=== PATIENT | female | born 1995 | race African-American/Black ===

== ENCOUNTER 2018-04-27 18:27 | Emergency (ER) | payer OTHER ==
[2018-04-27 18:55] LABS: BASO # 0.1 10^3/uL (0.0-0.2); BASO % 0.4 % (0.0-1.0); EOS % 0.3 % (0.0-3.0); HEMATOCRIT 35.4 % (36.0-47.0); IMMATURE GRANULOCYTE % 0.3 % (0-3.0); LYMPH # 2.1 10^3/uL (1.5-6.5); LYMPH % 17.7 % (24.0-44.0); MEAN CORPUSCULAR HEMOGLOBIN 28.6 pg (27.0-33.0); MEAN CORPUSCULAR HGB CONC 33.9 g/dl (32.0-36.5); MEAN CORPUSCULAR VOLUME 84.5 fl (80.0-96.0); MONO # 0.8 10^3/uL (0.0-0.8); MONO % 6.5 % (0.0-5.0); NEUTROPHILS # 8.8 10^3/uL (1.8-7.7); NEUTROPHILS % 74.8 % (36.0-66.0); PLATELET COUNT, AUTOMATED 345 10^3/uL (150-450); RED BLOOD COUNT 4.19 10^6/uL (4.00-5.40); RED CELL DISTRIBUTION WIDTH 12.9 % (11.5-14.5); WHITE BLOOD COUNT 11.8 10^3/uL (4.0-10.0)
[2018-04-27] MEDS: NS 1,000 ML IV (18:58)
[2018-04-27] MEDS: METOCLOPRAMIDE INJ 10MG/2ML VIAL (J2765) IV (18:58)
[2018-04-27 19:34] LABS: ALBUMIN 3.7 GM/DL (3.2-5.2); ALKALINE PHOSPHATASE 38 U/L (45-117); ALT/SGPT 21 U/L (12-78); AMYLASE 146 U/L (25-115); ANION GAP 11 MEQ/L (8-16); AST/SGOT 19 U/L (7-37); BILIRUBIN,TOTAL 0.6 MG/DL (0.2-1.0); BLOOD UREA NITROGEN 7 MG/DL (7-18); CARBON DIOXIDE LEVEL 24 MEQ/L (21-32); CHLORIDE LEVEL 103 MEQ/L (98-107); CREATININE FOR GFR 0.63 MG/DL (0.55-1.30); GLOMERULAR FILTRATION RATE > 60.0 (>60); GLUCOSE, FASTING 68 MG/DL (70-100); HCG, SERUM QUANTITATIVE 62834 MIU/ML; LIPASE 152 U/L (73-393); SODIUM LEVEL 138 MEQ/L (136-145); TOTAL PROTEIN 7.4 GM/DL (6.4-8.2)
[2018-04-27 20:38] LABS: KETONE, URINE AUTO RFX 1+ mg/dL (NEGATIVE); LEUKOCYTE ESTERASE UR AUTO RFX NEGATIVE (NEGATIVE); MUCUS, URINE RFX SMALL (NEGATIVE); NITRITE, URINE AUTO RFX NEGATIVE (NEGATIVE); RBC, URINE AUTO RFX 5 /HPF (0-3); SPECIFIC GRAVITY UR AUTO RFX 1.025 (1.002-1.035); SQUAM EPITHELIAL CELL UR AURFX 2 /HPF (0-6); WBC, URINE AUTO RFX 1 /HPF (0-3)
[2018-04-27 21:02] LABS: BEDSIDE GLUCOSE 86 MG/DL (70-105)
== END 2018-04-27 21:21 | disposition home or self-care (01) ==
LOC: M ED 18:27
DX: O21.1 Hyperemesis gravidarum with metabolic disturbance (principal); O99.281 Endocrine, nutritional and metabolic diseases complicating pregnancy, first trimester; E86.0 Dehydration; Z3A.01 Less than 8 weeks gestation of pregnancy; Z88.0 Allergy status to penicillin
CPT/HCPCS: J2765

== ENCOUNTER 2018-08-22 11:26 | Emergency (ER) | payer OTHER ==
[~2018-08-22] VITALS: Ht 160 cm; Wt 65.0 kg
[~2018-08-22 11:26] MED LIST: DICL10TA PO; PROM25SU PR
[2018-08-22 11:32] VITALS: BP 118/70
[2018-08-22] MEDS ORDERED: PRENTAB29 (11:36)
[2018-08-22] MEDS ORDERED: POLY33503 (11:36)
== END 2018-08-22 12:05 | disposition home or self-care (01) ==
LOC: M ED 11:26
DX: K64.4 Residual hemorrhoidal skin tags (principal); Z3A.24 24 weeks gestation of pregnancy; Z88.0 Allergy status to penicillin

== ENCOUNTER 2018-08-28 19:54 | Outpatient (CLI) | payer OTHER ==
[~2018-08-28] VITALS: Ht 160 cm; Wt 63.0 kg
[~2018-08-28 19:54] MED LIST changes: +POLY33503; +PRENTAB29
[2018-08-28 20:11] VITALS: BP 118/65
[2018-08-28 20:30] LABS: APPEARANCE, URINE CLOUDY (CLEAR); BACTERIA, URINE AUTO 2+ (NEGATIVE); BILIRUBIN, URINE AUTO NEGATIVE (NEGATIVE); BLOOD, URINE BLOOD NEGATIVE (NEGATIVE); GLUCOSE, URINE (UA) AUTO NEGATIVE (NEGATIVE); KETONE, URINE AUTO NEGATIVE (NEGATIVE); LEUKOCYTE ESTERASE, URINE AUTO 1+ (NEGATIVE); MUCUS, URINE SMALL (NEGATIVE); NITRITE, URINE AUTO NEGATIVE (NEGATIVE); PROTEIN, URINE AUTO NEGATIVE (NEGATIVE); RBC, URINE AUTO 4 /HPF (0-3); SPECIFIC GRAVITY URINE AUTO 1.008 (1.002-1.035); SQUAMOUS EPITHELIAL CELL UR AU 26 /HPF (0-6); UROBILINOGEN, URINE AUTO 0.2 mg/dL (0.0-2.0); WBC, URINE AUTO 6 /HPF (0-3)
[2018-08-28 20:45] LABS: COLOR, URINE YELLOW (YELLOW)
[2018-08-28] MEDS ORDERED: LR 1,000 ML IV ONE (21:00)
[2018-08-28] MEDS ORDERED: ceFAZolin SOD 1 GM in D5W MINI-BAG PLUS 50 ML IV ONE (22:15)
--- NOTE | 2018-08-29 06:46 | HPE ---
DATE OF ADMISSION: 08/28/2018 HISTORY OF PRESENT ILLNESS: This lady is a 22-year-old 2, para 0, aborta 1, LMP 03/17/2018, estimated date of confinement (EDC) 12/12/2018 at 24 and 6 weeks of gestation with history of pelvic pressure. No vaginal loss or bleeding, possible urinary tract infection (UTI). Risk factors is she has cholelithiasis, low grade squamous intraepithelial lesion (LGSIL) on Pap smear and there is significant marital issues and she is attending [facility]. PAST HISTORY: 2015 at six weeks dilation and curettage (D and C). Labs show B+, HIV negative, HEP negative, RPR negative, rubella immune. Varicella nonimmune, Pap LGSIL, urine is negative. Gonorrhea and chlamydia are negative. EXAMINATION: GENERAL: No distress. Symphysis fundus height is 24. heart is positive. No contractions. Urine is positive with a 1.008, pH 6, leukocyte esterase +1 and bacteria +2 and it looks quite concentrated. She has no contractions. She does not complain of dysuria but she has decreased movement secondary probably to UTI. PLAN OF MANAGEMENT: Our plan of management was to hydrate the patient, give her intravenous (IV) antibiotics and prophylactically give her oral antibiotics awaiting the culture and sensitivity. Precautions were given increasing fluids and monitoring her uterine irritability if it is present. The rest examination is unremarkable. HEENT/NECK: Normocephalic atraumatic. Neck with full range of motion. Pupils equal and reactive to light. EXTREMITIES: Distal pulses are symmetric. No evidence of deep venous thrombosis (DVT), pulmonary embolus (PE), or superficial phlebitis. CHEST: Chest is clear bilaterally to bases. No wheezes or rhonchi. ABDOMEN: Soft four quadrant bowel sounds, positive heart. No vaginal loss or bleeding. No complaints of cough, wheezes, shortness of breath or dyspnea on exertion. No rash lesions or pruritus. No arthralgia or myalgia. GYNECOLOGY HISTORY: Low grade squamous intraepithelial lesion (LGSIL). MEDICAL HISTORY: Noncontributory. She is an active duty soldier to a soldier, serious medical issues are being resolved at the present time. The rest examination unremarkable. She does have presently good support in place. SUMMARY: 24+ week gestation, possible urinary tract infection (UTI). Treatment and followup in the clinic, appointment for reculture in 10 days' time. cc: Saqib Cline
== END 2018-08-28 22:30 | disposition home or self-care (01) ==
LOC: M LDO 19:54
PROVIDERS: ATTEND Obstetrics & Gynecology
DX: O36.8120 Decreased fetal movements, second trimester, not applicable or unspecified (principal); O26.892 Other specified pregnancy related conditions, second trimester; R10.30 Lower abdominal pain, unspecified; R87.612 Low grade squamous intraepithelial lesion on cytologic smear of cervix (LGSIL); O99.619 Diseases of the digestive system complicating pregnancy, unspecified trimester; Z3A.24 24 weeks gestation of pregnancy
CPT/HCPCS: 81001; 87086; G0378; G0463; J0690

== ENCOUNTER 2018-10-05 19:35 | Outpatient (CLI) | payer OTHER ==
[~2018-10-05] VITALS: Ht 160 cm; Wt 71.7 kg
[2018-10-05 19:50] VITALS: BP 115/71
== END 2018-10-05 21:40 | disposition home or self-care (01) ==
LOC: M LDO 19:35
PROVIDERS: ATTEND Obstetrics & Gynecology
DX: O26.82 Pregnancy related peripheral neuritis (principal); O99.343 Other mental disorders complicating pregnancy, third trimester; F41.9 Anxiety disorder, unspecified; Z3A.30 30 weeks gestation of pregnancy
CPT/HCPCS: 59025; G0378; G0463

== ENCOUNTER 2018-11-03 01:03 | Outpatient (CLI) | payer OTHER ==
[~2018-11-03] VITALS: Ht 160 cm; Wt 72.1 kg
[2018-11-03 02:25] VITALS: BP 121/72
== END 2018-11-03 02:05 | disposition home or self-care (01) ==
LOC: M LDO 01:03
PROVIDERS: ATTEND Obstetrics & Gynecology
DX: O47.03 False labor before 37 completed weeks of gestation, third trimester (principal); Z3A.34 34 weeks gestation of pregnancy
CPT/HCPCS: 59025; G0378; G0463

== ENCOUNTER → 2018-11-25 | Outpatient (CLI) | payer OTHER ==
[~2018-11-25] VITALS: Ht 162.6 cm; Wt 75.9 kg
[~2018-11-25] MED LIST changes: +VALT500T PO
[2018-11-25 05:23] VITALS: BP 123/61
--- NOTE | 2018-11-25 06:25 | REPVR ---
EXAM: US Duplex Left Lower Extremity Veins, Limited EXAM DATE/TIME: 11/25/2018 6:02 AM CLINICAL HISTORY: 23 years old, female; Pain; Leg, lower; Left; Additional info: Rule out dvd or vte, lower left calf TECHNIQUE: Imaging protocol: Real-time Duplex ultrasound of the Left Lower Extremity with 2-D lujan scale, color Doppler flow and spectral waveform analysis. Limited exam focused on the left lower extremity veins. COMPARISON: No relevant prior studies available. FINDINGS: Left deep veins: Unremarkable. The common femoral, femoral, and popliteal veins are patent without thrombus. Normal Doppler waveforms. Normal compressibility and/or augmentation response. Left superficial veins: Unremarkable. Saphenofemoral junction is patent without thrombus. Soft tissues: Unremarkable. IMPRESSION: No acute findings. No evidence of deep vein thrombosis. Electronically signed by: Hitesh Treadwell On 11/25/2018 06:25:07 AM
[2018-11-25 06:33] VITALS: BP 126/68
--- NOTE | 2018-11-25 09:42 | HPE ---
DATE OF ADMISSION: 11/25/2018 23-year-old, 2, para 1, last menstrual period (LMP) 03/07/2018, expected date of confinement (EDC) 12/12/2018 at 37 and 2 weeks of gestation, history of pain in her left lower back of her knee and calf since yesterday after stretching exercises became intolerable and she was unable to sleep or walk. Risk factors is she is HSV positive and is supposedly going to be on prophylactic Zovirax. She has cholelithiasis and marital discord. Past History: In 2015: TOP at 6 weeks. Labs: Show B+. HIV negative. Hepatitis negative. RPR negative. Rubella immune. Varicella nonimmune. Pap LGSIL. Urine negative. Gonorrhea and chlamydia negative. 1-hour glucose was elevated 162. Her 3-hour GTT with 1-hour of 143, 2-hour 132 and 3-hour was 102. On examination, does not appear to be in distress. Symphysis fundus height is 37. Category one strip. No contractions noted. Baseline within normal limits and moderate variability. No vaginal bleeding or loss. Looking at her legs bilaterally, they are equal and symmetrical from the toes to the introitus. The pedal pulses are normal. The hair distribution is normal. There is no evidence of hot, red or tender areas, especially behind the knee. The femoral popliteal palpations are normal. Scott sign was slightly positive. There is some tenderness in the calf on the left side. Doppler flow to the left leg and limb shows no evidence of deep vein thrombosis or superficial phlebitis. There are no bruises. She denies any trauma. Blood pressure 126/68, respirations 18, pulse 85, temperature 98.3. The plan is to hydrate, antiembolic stockings, heat and massage to the area. Avoid excessive stretching exercises. Discharged undelivered.
== END ==
LOC: M LDO 05:03
PROVIDERS: ATTEND Obstetrics & Gynecology
DX: O26.893 Other specified pregnancy related conditions, third trimester (principal); M79.662 Pain in left lower leg; O62.2 Other uterine inertia; Z3A.37 37 weeks gestation of pregnancy
CPT/HCPCS: 59025; 93971; G0378; G0463

== ENCOUNTER 2018-12-09 07:34 | Inpatient (IN) | payer OTHER ==
[2018-12-09] VITALS (8 sets, daily range): BP systolic 117–130; BP diastolic 76–90
[~2018-12-09] VITALS: Ht 160 cm; Wt 75.6 kg
[2018-12-09] MEDS ORDERED: LACTATED RINGER'S 1000 ML IV STA (09:00)
[2018-12-09] MEDS ORDERED: BICITRA 30ML SOLN UDC PO ONE (09:00)
[2018-12-09] MEDS ORDERED: LR 1,000 ML IV SCH ×2 (09:00→14:30)
[2018-12-09 09:26] LABS: HEMATOCRIT 30.8 % (36.0-47.0); HEMOGLOBIN 10.1 g/dl (12.0-15.5); MEAN CORPUSCULAR HEMOGLOBIN 27.3 pg (27.0-33.0); MEAN CORPUSCULAR HGB CONC 32.8 g/dl (32.0-36.5); MEAN CORPUSCULAR VOLUME 83.2 fl (80.0-96.0); PLATELET COUNT, AUTOMATED 242 10^3/uL (150-450); WHITE BLOOD COUNT 10.3 10^3/uL (4.0-10.0)
[2018-12-09] MEDS ORDERED: AZITHROMYCIN INJ 500 MG, VIAL MATE ADAPTER 1 EACH in D5W 250 ML IV ONE (09:30)
[2018-12-09] MEDS ORDERED: BUPIVACAINE HCL 0.25% 10 ML VIAL SC ONE (10:00)
[2018-12-09] MEDS ORDERED: ACETAMINOPHEN 650 MG SUPP PR ONE (10:00)
[2018-12-09] MEDS ORDERED: MORPHINE PRES-FREE INJ 10 MG/10 ML VIAL (J2274) As Ordered ONE (12:52)
[2018-12-09] MEDS ORDERED: diphenhydrAMINE INJ 50MG/ML VIAL (J1200) IV PRN (13:00)
[2018-12-09] MEDS ORDERED: NALOXONE INJ 0.4 MG/1 ML VIAL (J2310) IV PRN ×2 (13:00)
[2018-12-09] MEDS ORDERED: METOCLOPRAMIDE INJ 10MG/2ML VIAL (J2765) IV PRN ×2 (13:00→14:30)
[2018-12-09] MEDS ORDERED: NALBUPHINE HCL 10 MG/ML AMP (J2300) IV PRN (13:00)
[2018-12-09] MEDS ORDERED: ONDANSETRON 4MG/2ML VIAL (J2405) IV PRN ×2 (13:00→14:30)
[2018-12-09] MEDS ORDERED: ONDANSETRON 4MG/2ML VIAL (J2405) As Ordered ONE (13:03)
[2018-12-09] MEDS ORDERED: OXYTOCIN INJ 10 UNITS/ML VIAL (J2590) As Ordered ONE ×2 (13:03→13:15)
[2018-12-09] MEDS ORDERED: KETOROLAC 60 MG/2 ML VIAL (J1885) As Ordered ONE (13:03)
[2018-12-09] MEDS ORDERED: ePHEDrine SULFATE 25 MG/5 ML(5MG/ML) SYRINGE As Ordered ONE (13:38)
[2018-12-09 13:46] LABS: CORD GAS ABE V -1.8; CORD GAS HCO3 V 25.1 MEQ/L; CORD GAS O2 SAT V 40.3 %; CORD GAS PCO2 V 50.5 mmHg; CORD GAS PH V 7.315 UNITS; CORD GAS PO2 V 20.2 mmHg; CORD GAS SBC V 21.4 MEQ/L; CORD GAS TCO2 V 26.7 MEQ/L
[2018-12-09 13:48] LABS: CORD GAS ABE A -1.8; CORD GAS HCO3 A 27.1 MEQ/L; CORD GAS O2 SAT A 21.8 %; CORD GAS PCO2 A 62.7 mmHg; CORD GAS PH A 7.253 UNITS; CORD GAS PO2 A 15.2 mmHg
[2018-12-09] MEDS ORDERED: OXYTOCIN DRIP 30 UNITS in APPROPRIATE DILUENT 1 EA IV SCH (14:16)
[2018-12-09] MEDS: LR 1,000 ML IV SCH ×2 (14:16→22:16)
[2018-12-09] MEDS ORDERED: DOCUSATE SODIUM 100 MG CAP PO PRN (14:30)
[2018-12-09] MEDS ORDERED: MOM 30ML SUSPENSION UDC PO PRN (14:30)
[2018-12-09] MEDS ORDERED: ANUSOL HC CREAM 30GM TOP PRN (14:30)
[2018-12-09] MEDS ORDERED: OXYTOCIN INJ 10 UNITS/ML VIAL (J2590) IV ONE (14:30)
[2018-12-09] MEDS ORDERED: PERCOCET 5MG/325MG TAB PO PRN (14:30)
[2018-12-09] MEDS ORDERED: MEASLES,MUMPS,RUBELLA VACCINE INJ (MMR-II) (90707) SC SCH (14:30)
[2018-12-09] MEDS ORDERED: fentaNYL 100 MCG/2 ML INJECTION (J3010) IV PRN (14:30)
[2018-12-09] MEDS ORDERED: MEPERIDINE INJ 25 MG/ML VIAL (J2175) IV PRN (14:30)
[2018-12-09] MEDS ORDERED: RHOGAM 300 MCG (1500 IU) INJ (J2790) IM SCH (14:30)
--- NOTE | 2018-12-09 15:33 | HPE ---
DATE OF ADMISSION: 12/09/2018 A 23-year-old 2, para 0, abortus 1, last menstrual period (LMP) 03/27/2018, estimated date of confinement (EDC) 12/12/2018, at 39+ weeks of gestation, with a history of an outbreak of herpes simplex virus (HSV) in the last 24-48 hours. This has occurred after she shaved in the pubic area and irritated the area of the lesion she said broke and it was weeping. She denies any spontaneous rupture of membranes or vaginal discharge. RISK FACTORS: She is HSV positive, is taking Valtrex, has cholelithiasis, has marital strife. Group B Streptococcus (GBS) positive, low-grade squamous intraepithelial lesion (LGSIL), either molluscum contagiosum or condyloma. PAST HISTORY: August 2014 at 6 weeks: Spontaneous with dilation and curettage (D C). LABORATORIES: B+, HIV negative, hepatitis negative, rapid plasma reagin (RPR) negative, rubella immune. Varicella is nonimmune. Pap is LGSIL. Urine is negative. Gonorrhea and chlamydia are negative. Initial one hour glucose was elevated 162. Three hour glucose tolerance test (GTT): One hour is 143, two hour 132, three hour 102. She is GBS positive. Presently, she is in no distress. Symphysis fundus height is 40, vertex presenting. Four quadrant bowel sounds are noted. Category one strip. No evidence of ruptured membranes or bleeding. She does definitely have a lesion on the left side lateral to the clitoral area. It appears to have been weeping. It is painful and appears to be a herpetic-like lesion. Lower down, the next to her "skin tag," is another lesional site which is not ruptured at the present time. She is positive for lymph nodes on the left side and they are tender. Her blood pressure is 117/78, respirations are 18, pulse 95, temperature 97.8. Examination of the cervix is closed, posterior high, presenting part ballotable. We discussed the option of primary section despite the fact she is taking Valtrex. She does have active lesion. We discussed the risks and benefits of section, including hemorrhage, infection, perforation, , reoperation, remote possibility of hysterectomy, remote possibility of blood transfusion, remote possibility of admission to the intensive care unit (NICU), possibly if the baby, in fact, can develop HSV symptomatology, despite the fact the membranes are intact. The patient expresses understanding of the concerns, is quite nervous about the whole ordeal, is anxious about hearing about the complications related to primary section with an active herpetic outbreak versus vaginal delivery, the possibility of transition through the vaginal canal and contact of the baby with HSV. All questions were answered in a 25-minute discussion. The patient signed a witnessed consent form. We spoke with anesthesia and because of a full breakfast, we will wait until 01:00 p.m., or 1300 hours, and neonatology has been notified.
[2018-12-09] MEDS: PRENATAL VITAMINS CHEWABLE TABLET PO SCH (15:40)
[2018-12-09] MEDS: ACETAMINOPH W/CODEINE #3 TAB UD PO PRN (17:28)
[2018-12-09] MEDS: KETOROLAC 30 MG/ML VIAL (J1885) IV SCH (18:57)
[2018-12-10] MEDS: KETOROLAC 30 MG/ML VIAL (J1885) IV SCH ×2 (01:06→06:48)
[2018-12-10 02:00] VITALS: BP 120/72
[2018-12-10] MEDS: ACETAMINOPH W/CODEINE #3 TAB UD PO PRN ×3 (05:28→19:48)
[2018-12-10 05:49] VITALS: BP 117/51
[2018-12-10 06:26] LABS: HEMATOCRIT 24.8 % (36.0-47.0); HEMOGLOBIN 8.1 g/dl (12.0-15.5); MEAN CORPUSCULAR HEMOGLOBIN 27.6 pg (27.0-33.0); MEAN CORPUSCULAR HGB CONC 32.7 g/dl (32.0-36.5); MEAN CORPUSCULAR VOLUME 84.4 fl (80.0-96.0); PLATELET COUNT, AUTOMATED 179 10^3/uL (150-450); RED BLOOD COUNT 2.94 10^6/uL (4.00-5.40); WHITE BLOOD COUNT 11.4 10^3/uL (4.0-10.0)
--- NOTE | 2018-12-10 07:15 | IPNPDOC ---
Text Note Date of Service The patient was seen on 12/10/18. NOTE POD1 PLTCS States feeling well, pain controlled with prescribed meds. Baby bonding and feeding well. No heavy VB. Lochia slowing. Ambulatory. Tolerating PO without issues. Voiding, UO adequate. VSSAF NAD A&O RRR CTAB LE no C/C/E Ut at U-2, [employer] CDI, bandage removed This AM HCT 24.8, PLT 179 a/p: Doing well. Cont routine postop care. D/C tomorrow likely. Sessions Rojas ARANA, I+O VSRojas I+O Laboratory Tests 12/09/18 09:18 Red Blood Count 3.70 L, Mean Corpuscular Volume 83.2, Mean Corpuscular Hemoglob in 27.3, Mean Corpuscular Hemoglobin Concent 32.8, Red Cell Distribution Width 14.4 12/10/18 05:59 Red Blood Count 2.94 L, Mean Corpuscular Volume 84.4, Mean Corpuscular Hemoglo bin 27.6, Mean Corpuscular Hemoglobin Concent 32.7, Red Cell Distribution Width 14.1 Vital Signs Date Time Temp Pulse Resp B/P (MAP) Pulse Ox O2 Delivery O2 Flow Rate FiO2 12/10/18 05:49 99.4 78 17 117/51 (73) 98 I&O- Last 24 Hours up to 6 AM 12/10/18 06:00 Intake Total 1700 ml Output Total 1730 ml Balance -30 ml SESSIONS,RADHA Jack MD Dec 10, 2018 07:15
[2018-12-10] MEDS: PRENATAL VITAMINS CHEWABLE TABLET PO SCH (09:00)
--- NOTE | 2018-12-10 09:22 | IPN ---
DATE: 12/09/2018 This patient and requested circumcision of their male . After discussing the risks and benefits of circumcision, the medical and nonmedical indications, penile block and aftercare, expressed understanding of penile block, aftercare and bleeding, signed the consent form, answered all questions. 20 minute discussion. We await the clearance by the insecticide expert.
[2018-12-10 09:55] VITALS: BP 109/56
--- NOTE | 2018-12-10 10:12 | RO ---
DATE OF PROCEDURE: 12/09/2018 PREOPERATIVE DIAGNOSIS: Active labor, active herpes simplex vulvar lesions. POSTOPERATIVE DIAGNOSIS: Active labor, active herpes simplex vulvar lesions. OPERATION PROPOSED: Primary section. OPERATION PERFORMED: Primary section. SURGEON: Dr. Adrian Gar VACUUM EVAPORATION OPERATOR: Dr. Chela Vale for extraction, retraction and visualization. ANESTHESIA: Spinal plus local anesthetic for intraperitoneal procedures. ESTIMATED BLOOD LOSS: 300 mL. DESCRIPTION OF PROCEDURE: After adequate anesthesia, prepped and draped in a supine position, Collazo catheter in the bladder draining clear urine, acetaminophen suppository 1300 mg, appropriate antibiotics preoperatively, and sequentials on the patient's legs, a Pfannenstiel incision was made two fingerbreadths above the symphysis pubis, passing through abdominal layers, securing hemostasis. Opening peritoneal cavity, bladder reflected well down anteriorly, a low transverse incision into the lower segment. Artificial rupture of membranes (AROM) draining clear liquid. Delivered a live male . We used one arm of the forceps to elevate the baby's head out of the pelvis. Weighing 3520 grams. Apgars of 9 and 9 at one and five minutes respectively. 7 pounds 12 ounces. Placenta was manually removed. Three vessels and cord, membranes and tissues intact. Arterial and venous pH were performed. With the uterus swept out with membranes and extra tissue, the uterus contracted well down under Pitocin. The lower segment was oversewn in the usual fashion in two layers, imbricating the second layer, and then reperitonealizing over that. With instrument and pad count correct, both tubes and ovaries appeared to be normal, closed the abdomen with running stitch for the peritoneum, same for the fascia, interrupted for subcutaneous, and Dexon to the skin. Marcaine 0.25%, 10 mL, for the subcuticular pain level. [place] and Telfa applied. The patient was sent to recovery in good condition.
[2018-12-10 14:00] VITALS: BP 125/73
[2018-12-10] MEDS: IBUPROFEN 800 MG TAB PO SCH ×2 (17:30→23:45)
[2018-12-10 17:50] VITALS: BP 118/66
[2018-12-10 22:00] VITALS: BP 129/81
[2018-12-11 02:00] VITALS: BP 121/74
[2018-12-11 06:00] VITALS: BP 119/69
[2018-12-11] MEDS ORDERED: IBUP80TA PO (07:27)
[2018-12-11] MEDS ORDERED: ACET1TAB16 PO (07:27)
[2018-12-11] MEDS ORDERED: COLA100C5 PO (07:27)
[2018-12-11] MEDS ORDERED: PROC1CRE5 TOP (07:27)
[2018-12-11] MEDS: PRENATAL VITAMINS CHEWABLE TABLET PO SCH (07:57)
[2018-12-11] MEDS: IBUPROFEN 800 MG TAB PO SCH (07:58)
--- NOTE | 2018-12-11 08:27 | DSES ---
DATE OF ADMISSION: 12/09/2018 DATE OF DISCHARGE: 12/11/2018 This lady was admitted in active labor with active herpes simplex vulvar lesions. Therefore, she had a primary section of a live male weighing 3520 grams, Apgars of 8 and 9 at one and five minutes respectively, 7 pounds and 12 ounces. Arterial pH was 7.25, base excess -1.8; venous pH 7.31, base excess -1.8. Admitting hemoglobin was 10.1, hematocrit 30.8 and platelets were 242. Discharge hemoglobin 8.1, hematocrit 24.8 and platelets were 179. Her vital signs on discharge were blood pressure 119/69, respirations 18, pulse 88, temperature is 99.0. We discussed phlebitis, cystitis, mastitis, endometritis, cellulitis; diet, exercise and pain management; perineal, breast and wound care. The patient was dispensed with medications for home use. She is for a 2-week incisional check and 6 weeks check. The rest examination was unremarkable. Normocephalic, atraumatic. Neck full range of motion. Pupils equal and reactive to light. Distal pulses symmetric. No evidence of deep vein thrombosis (DVT), pulmonary embolus (PE) or superficial phlebitis. Chest is clear bilaterally at bases. No wheezes or rhonchi. No costovertebral angle (CVA) tenderness. Abdomen: Soft. Uterus two below. Lochia is moderate. Four quadrant bowel sounds are noted. Incision is clean and dry. In her perineum, she still has the weeping lesion on the left side. Presently taking her Zovirax as directed. She has no complaints of cough, wheeze, shortness breath or dyspnea on exertion. No rashes, lesions or pruritus. No arthralgia or myalgia. No complaint of joint pain. The patient was discharged with discharge instructions with a 2-week incision check and 6-week check. All questions were answered, a 20-minute discussion. The patient is to take baby to [place]. edited: 12/12/2018 [id number] [id number]
== END 2018-12-11 10:47 | disposition home or self-care (01) | DRG 773 ==
LOC: M LDO 07:34 → M LDI 08:33 → M OBS 15:35
PROVIDERS: ADMIT Obstetrics & Gynecology; ATTEND Obstetrics & Gynecology
PROC: 10D00Z1 Extraction of Products of Conception, Low, Open Approach (ICD-10-PCS; principal; 2018-12-09 13:00)
DX: O98.32 Other infections with a predominantly sexual mode of transmission complicating childbirth (principal); A60.04 Herpesviral vulvovaginitis; O99.824 Streptococcus B carrier state complicating childbirth; Z3A.39 39 weeks gestation of pregnancy; Z37.0 Single live birth